=== PATIENT | male | born 1960 | race African-American/Black ===

== ENCOUNTER 2019-04-21 05:15 | Day surgery (SDC) | payer BC ==
[~2019-04-21] VITALS: Ht 177.8 cm; Wt 82.6 kg
[~2019-04-21 05:15] MED LIST: LIPITOR10 MG PO; NORVASC5 MG PO; SMZ-TMP DS TABL1 TAB PO
[2019-04-21 05:40] LABS: HEMATOCRIT 47.7 % (42.0-54.0); HEMOGLOBIN 16.1 g/dL (13.5-17.5); MCH 29.6 pg (26.0-34.0); MCHC 33.8 g/dL (31.0-37.0); MCV 87.7 fL (80.0-100.0); MEAN PLATELET VOLUME 11.2 fL (7.4-10.4); RBC 5.44 10x6/uL (4.20-6.10); RDW 15.1 % (11.5-14.5)
[2019-04-21 06:29] VITALS: BP 129/79; Ht 177.8 cm; Wt 82.6 kg
--- NOTE | 2019-04-21 08:18 | NUR ---
CARE TO HOPE DUMAS RN @[id number]
--- NOTE | 2019-04-21 08:21 | NUR ---
OPA IN AIRWAY ON ADMIT
--- NOTE | 2019-04-21 11:57 | OP ---
PATIENT NAME: MAT TOLEDO JR MEDICAL RECORD: [id number] :58 LOCATION:[facility] ADMISSION DATE: SURGEON: KISHAN MEZA MD DATE OF OPERATION: 04/21/2019 SURGEON: Kishan Meza MD ANESTHESIA: TIVA by Edwina Hernandez CRNA. DIAGNOSIS: Elevated PSA at 4.25. PROCEDURES: Cystoscopy, transrectal ultrasound and prostate biopsy. FINDINGS: On cystoscopy, bilateral lateral lobe obstruction with open bladder neck. Single ureteral orifices with no bladder tumors. Transrectal ultrasound shows a 39 gram prostate without hypoechoic areas. BLOOD LOSS: None. CLINICAL HISTORY: This is a 58-year-old male with an elevated PSA. He comes for cystoscopy, transrectal ultrasound, prostate biopsy today. He was given Levaquin IV flooring professional to the OR. DESCRIPTION OF PROCEDURE: The patient was given IV sedation. He was placed into lithotomy position and prepped and draped. A 17-German cystoscope with 30-degree lens was used for visualization. Findings are as outlined above. The bladder was emptied through the scope and the scope was removed. The transrectal ultrasound probe was then introduced. Prostate size measurements were obtained at 39 grams. Sextant biopsies were obtained with at least 3 cores from each sextant. Once these specimens were obtained, the procedure was terminated. I will see the patient in followup next week to review the pathology. TRANSINT:[id number] Voice Confirmation ID: [id number] DOCUMENT ID: [id number] KISHAN MEZA MD at 1157 CC: [id number] DICTATION DATE: 04/21/19 0840 OB/GYN DOCTOR: 04/21/19 1034 [facility] 04/21/19 [facility] [address] [place] [address]
== END 2019-04-21 09:45 | disposition home or self-care (01) ==
LOC: D.OPS 05:15
PROVIDERS: Anesthesiology; ATTEND Urology
DX: R97.20 Elevated prostate specific antigen [PSA] (principal); N32.0 Bladder-neck obstruction

== ENCOUNTER → 2019-05-13 07:29 | Outpatient (CLI) | payer BC ==
[2019-04-21 06:29] VITALS: BMI 26.1
== END | disposition home or self-care (01) ==
LOC: D.NM 07:29
PROVIDERS: ATTEND Urology
DX: C61 Malignant neoplasm of prostate (principal)

== ENCOUNTER → 2019-05-19 10:41 | Outpatient (CLI) | payer BC ==
[2019-04-21 06:29] VITALS: BMI 26.1
== END | disposition home or self-care (01) ==
LOC: D.RAD 10:41
PROVIDERS: ATTEND Urology
DX: R94.8 Abnormal results of function studies of other organs and systems (principal)